=== PATIENT | female | born 1970 | race Caucasian/White ===

== ENCOUNTER 2016-07-18 13:43 | Emergency (ER) | payer SELFPAY ==
[~2016-07-18] VITALS: Ht 165.1 cm; Wt 68.0 kg
[2016-07-18] MEDS ORDERED: KETOROLAC TROMETHAMINE 60 MG/2 ML VIAL IM ONE (14:15)
[2016-07-18] MEDS ORDERED: TraMADol HCL 50 MG TABLET PO ONE (15:00)
[2016-07-18 15:04] VITALS: BP 140/81
== END 2016-07-18 15:39 | disposition home or self-care (01) ==
LOC: EMS 13:44
DX: S39.012A Strain of muscle, fascia and tendon of lower back, initial encounter (principal); F17.210 Nicotine dependence, cigarettes, uncomplicated; Z88.0 Allergy status to penicillin; X37.1XXA Tornado, initial encounter; Y93.89 Activity, other specified; Y92.091 Bathroom in other non-institutional residence as the place of occurrence of the external cause; Y99.8 Other external cause status
CPT/HCPCS: 99283; J1885